=== PATIENT | male | born 1965 | race Caucasian/White ===

== ENCOUNTER → 2018-07-31 10:08 | Outpatient (CLI) | payer OTHER, SELFPAY ==
[2018-07-31 10:58] LABS: Cholesterol 284 mg/dL (140-199); HDL Cholesterol 48 mg/dL (40-60); LDL Cholesterol Calculated 189 mg/dL (<100); Triglycerides 237 mg/dL (35-150)
[2018-07-31 11:14] LABS: Vitamin D 25 Hydroxy (D3) 33.6 ng/mL (30.0-100.0)
== END ==
PROVIDERS: PCP Student in an Organized Health Care Education/Training Program; Visit Provider Student in an Organized Health Care Education/Training Program
DX: Z12.5 Encounter for screening for malignant neoplasm of prostate (principal); Z13.220 Encounter for screening for lipoid disorders; Z82.49 Family history of ischemic heart disease and other diseases of the circulatory system; E55.9 Vitamin D deficiency, unspecified
CPT/HCPCS: 36415; 80061; 82306; G0103

== ENCOUNTER → 2018-10-28 08:27 | Outpatient (CLI) | payer OTHER, SELFPAY ==
[2018-10-28 10:31] LABS: Alanine Aminotransferase 121 IU/L (21-72); Albumin 4.4 g/dL (3.5-5.0); Albumin Globulin Ratio 1.6 (1.0-2.8); Alkaline Phosphatase 90 U/L (38-126); Aspartate Aminotransferase 72 IU/L (17-59); Bilirubin Unconjugated 0.8 mg/dL (0.0-1.1); Cholesterol 167 mg/dL (140-199); Globulin 2.8 g/dL (1.7-4.1); HDL Cholesterol 50 mg/dL (40-60); HEMOLYSIS < 15 (0-50); LDL Cholesterol Calculated 93 mg/dL (<100); Total Protein 7.2 g/dL (6.3-8.2); Triglycerides 118 mg/dL (35-150)
== END ==
PROVIDERS: PCP Student in an Organized Health Care Education/Training Program; Visit Provider Student in an Organized Health Care Education/Training Program
DX: E78.2 Mixed hyperlipidemia (principal); Z79.899 Other long term (current) drug therapy
CPT/HCPCS: 36415; 80061; 80076

== ENCOUNTER → 2019-11-18 09:50 | Outpatient (CLI) | payer OTHER, SELFPAY ==
[2019-11-18 10:40] LABS: Alanine Aminotransferase 63 IU/L (<50); Albumin 4.5 g/dL (3.5-5.0); Albumin Globulin Ratio 1.7 (1.0-2.8); Alkaline Phosphatase 73 U/L (38-126); Aspartate Aminotransferase 59 IU/L (17-59); Bilirubin Total 1.1 mg/dL (0.2-1.3); Bilirubin Unconjugated 0.8 mg/dL (0.0-1.1); Cholesterol 177 mg/dL (140-199); Globulin 2.7 g/dL (1.7-4.1); HDL Cholesterol 57 mg/dL (40-60); HEMOLYSIS < 15 (0-50); LDL Cholesterol Calculated 97 mg/dL (<100); Total Protein 7.2 g/dL (6.3-8.2); Triglycerides 116 mg/dL (35-150)
[2019-11-18 11:11] LABS: Prostate Specific Antigen Scrn 0.712 ng/mL (0.1-4.0)
== END ==
PROVIDERS: PCP Student in an Organized Health Care Education/Training Program; Referring Provider Student in an Organized Health Care Education/Training Program; Visit Provider Student in an Organized Health Care Education/Training Program
DX: Z12.5 Encounter for screening for malignant neoplasm of prostate (principal); Z79.899 Other long term (current) drug therapy; R74.8 Abnormal levels of other serum enzymes; E78.5 Hyperlipidemia, unspecified
CPT/HCPCS: 36415; 80061; 80076; G0103

== ENCOUNTER → 2021-05-10 09:55 | Outpatient (CLI) | payer OTHER, SELFPAY ==
[2021-05-10 11:24] LABS: Alanine Aminotransferase 36 IU/L (<50); Albumin 4.3 g/dL (3.5-5.0); Albumin Globulin Ratio 1.7 (1.0-2.8); Alkaline Phosphatase 67 U/L (38-126); Aspartate Aminotransferase 31 IU/L (17-59); Bilirubin Total 0.9 mg/dL (0.2-1.3); Bilirubin Unconjugated 0.9 mg/dL (0.0-1.1); Globulin 2.6 g/dL (1.7-4.1); HEMOLYSIS < 15 (0-50); Total Protein 6.9 g/dL (6.3-8.2)
[2021-05-10 11:53] LABS: Prostate Specific Antigen Scrn 0.807 ng/mL (0.1-4.0)
== END ==
PROVIDERS: PCP Student in an Organized Health Care Education/Training Program; Referring Provider Student in an Organized Health Care Education/Training Program; Visit Provider Student in an Organized Health Care Education/Training Program
DX: E78.5 Hyperlipidemia, unspecified (principal); R79.89 Other specified abnormal findings of blood chemistry; Z12.5 Encounter for screening for malignant neoplasm of prostate
CPT/HCPCS: 36415; 80076; G0103

== ENCOUNTER → 2022-09-01 08:39 | Outpatient (CLI) | payer OTHER, SELFPAY ==
[2022-09-01 09:35] LABS: Cholesterol 206 mg/dL (140-199); HDL Cholesterol 60 mg/dL (40-60); LDL Cholesterol Calculated 104 mg/dL (<100); Triglycerides 211 mg/dL (35-150)
[2022-09-01 10:22] LABS: Hep C Virus Ab w/Reflex Quant NEGATIVE s/c (NEGATIVE)
== END ==
PROVIDERS: PCP Student in an Organized Health Care Education/Training Program; Referring Provider Student in an Organized Health Care Education/Training Program; Visit Provider Student in an Organized Health Care Education/Training Program
DX: E78.5 Hyperlipidemia, unspecified (principal); Z11.59 Encounter for screening for other viral diseases
CPT/HCPCS: 36415; 80061; 86803

== ENCOUNTER → 2024-07-25 07:57 | Outpatient (CLI) | payer OTHER, SELFPAY ==
[2024-07-25 09:03] LABS: Alanine Aminotransferase 70 IU/L (<50); Albumin 4.6 g/dL (3.5-5.0); Albumin Globulin Ratio 1.9 (1.0-2.8); Alkaline Phosphatase 69 U/L (38-126); Aspartate Aminotransferase 50 IU/L (17-59); BUN Creatinine Ratio 20.2 (6-22); Bilirubin Total 1.3 mg/dL (0.2-1.3); Blood Urea Nitrogen 19 mg/dL (9-20); Calcium 9.5 mg/dL (8.4-10.2); Carbon Dioxide 22 mmol/L (22-32); Chloride 108 mmol/L (98-107); Cholesterol 214 mg/dL (140-199); Estimated Glomerular Filt Rate > 60 mL/min (>60); Globulin 2.4 g/dL (1.7-4.1); Glucose 109 mg/dL (80-110); HDL Cholesterol 54 mg/dL (40-60); HEMOLYSIS < 15 (0-50); LDL Cholesterol Calculated 139 mg/dL (<100); Potassium 4.4 mmol/L (3.4-5.1); Sodium 140 mmol/L (137-145); Triglycerides 106 mg/dL (35-150)
[2024-07-25 09:33] LABS: Prostate Specific Antigen Scrn 1.05 ng/mL (0.1-4.0)
== END ==
PROVIDERS: PCP Family Medicine; Referring Provider Family Medicine; Visit Provider Family Medicine
DX: E78.5 Hyperlipidemia, unspecified (principal); Z12.5 Encounter for screening for malignant neoplasm of prostate
CPT/HCPCS: 36415; 80053; 80061; G0103

== ENCOUNTER 2025-02-11 12:11 | Emergency (ER) | payer OTHER, SELFPAY ==
[2025-02-11] VITALS (9 sets, daily range): BP systolic 118–149; BP diastolic 74–82; PULSE 82–96; RESP 13–24; TEMP 36.8; O2SAT 96–100; BMI 25.6
--- NOTE | 2025-02-11 12:23 | EKG_ITS ---
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
--- NOTE | 2025-02-11 12:23 | DI.RAD.S_ITS ---
PROCEDURE: XR CHEST 1V INDICATIONS: tachy/low O2 w/ exertion, calf pain, sob TECHNIQUE: One view of the chest was acquired. COMPARISON: None. FINDINGS: Surgical changes and devices: None. Lungs and pleura: Lungs are clear. No pleural effusions or pneumothorax. Mediastinum: Mediastinal contours appear normal. Heart size is normal. Bones and chest wall: No suspicious bony lesions. Overlying soft tissues appear unremarkable. IMPRESSION: No acute cardiopulmonary pathology. Dictated by: Stevie Dahl M.D. on 02/11/2025 at 13:38 Approved by: Stevie Dahl M.D. on 02/11/2025 at 13:56
--- NOTE | 2025-02-11 12:23 | DI.CT.S_ITS ---
PROCEDURE: CT ANGIO CHEST PE PROTOCOL INDICATIONS: tachy/low O2 w/ exertion, calf pain, short of breath TECHNIQUE: After the administration of intravenous contrast, 2 mm thick sections acquired from the pulmonary apices to the posterior costophrenic angles. 3-dimensional maximum intensity projection (MIP) coronal and sagittal reformats were then acquired through the thorax. For radiation dose reduction, the following was used: automated exposure control, adjustment of mA and/or kV according to patient size. COMPARISON: [facility], CR, XR CHEST 1V, 02/11/2025, 12:25. [facility], US, US PERIPH VENOUS LOW EXTREM BI, 02/11/2025, 12:45. FINDINGS: Image quality: Diagnostic. Pulmonary arteries: Pulmonary arteries are normal in size, and demonstrate no intraluminal filling defects to suggest central pulmonary embolism. Lower Neck: No enlarged lymph nodes. Thyroid: No thyroid nodules which require sonographic follow up, per consensus guidelines. Axillae: No enlarged lymph nodes. Chest Wall: Unremarkable. Bones: Accentuated thoracic kyphosis is seen. Age-appropriate bony degenerative changes are seen. Lungs and Pleura: No pneumothorax or pleural effusions. No consolidation or suspicious nodules. Heart: Heart size is normal. No pericardial effusion. Thoracic Vessels: No aortic aneurysm. Mediastinum and [place]: No enlarged lymph nodes. Esophagus: No wall thickening. No hiatal hernia. Upper Abdomen: Metallic foci can be seen along the anterior aspect of the left kidney. Nonobstructing left-sided kidney stones are seen, measuring 3 mm. The visualized portions of the upper abdominal structures are otherwise unremarkable for imaging technique. IMPRESSION: No pulmonary embolus. No acute cardiopulmonary process. Dictated by: Amaury Eisenberg M.D. on 02/11/2025 at 13:13 Approved by: Amaury Eisenberg M.D. on 02/11/2025 at 13:15
--- NOTE | 2025-02-11 12:23 | DI.US.S_ITS ---
PROCEDURE: US PERIPH VENOUS LOW EXTREM BI INDICATIONS: calf pain, swelling, redness TECHNIQUE: Real-time imaging, as well as color and pulse Doppler interrogation, were performed of the deep veins of both legs from the inguinal ligament to the popliteal fossa, with documentation of the visualized calf veins. COMPARISON: None. FINDINGS: Right: The common femoral, femoral, popliteal, and the visualized calf veins are normally compressible, and free of intraluminal thrombus. Color and pulse Doppler demonstrate normal phasic intravascular flow. There is normal augmentation response to distal compression maneuver. Left: The common femoral, femoral, popliteal, and the visualized calf veins are normally compressible, and free of intraluminal thrombus. Color and pulse Doppler demonstrate normal phasic intravascular flow. There is normal augmentation response to distal compression maneuver. IMPRESSION: No findings of deep venous thrombosis in either lower extremity. Dictated by: Stevie Dahl M.D. on 02/11/2025 at 13:56 Approved by: Stevie Dahl M.D. on 02/11/2025 at 13:56
--- NOTE | 2025-02-11 12:25 | ED.SOB ---
HPI - SOB/Dyspnea General Chief Complaint: Shortness of Breath/Dyspnea Stated Complaint: Rule out P E in lung Time Seen by Provider: 02/11/25 12:23 Source: patient, RN notes reviewed and old records reviewed Mode of arrival: Ambulatory Limitations: no limitations History of Present Illness HPI Narrative: 59-year-old male history of dyslipidemia presents with complaint of recent pneumonia was treated for clinical pneumonia with initially Augmentin and then followed by azithromycin symptoms seemed to improve cough seemed to resolve but patient has had persistent fatigue particularly with exertion they have not noticed being short of breath but family has noticed there little tachypneic when they walk. They have noticed there heart rate gets above 100 in the O2 sat we will sometimes dip to 89% with the exertion. They do not have any known lung disease. Patient also notes he has had calf pain for several days to a week in the right calf he has noticed a little bit of swelling and warmth. Patient states statin is his only daily medication. He has not had any fevers cough has resolved no hemoptysis reported. No chest pain, no shortness of breath at they appreciate no nausea or vomiting no other GI or urinary symptoms. Patient has not had any prior surgeries no anticoagulants, allergy to Demerol, no tobacco 2 or 3 alcoholic drinks daily no recreational drugs. Dr. Woods is there primary care physician. 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 Related Data Previous Rx's ?Medication ?Instructions ?Recorded rosuvastatin 20 mg tablet (Crestor) 20 mg PO DAILY cholesterol #100 09/17/24 tabs Allergies Allergy/AdvReac Type Severity Reaction Status Date / Time meperidine (From Demerol) Allergy Intermediate VOMITING Verified 02/10/25 15:02 Review of Systems Review of Systems ROS Unobtainable: All systems reviewed & are unremarkable except as noted in HPI and below Patient History Medical History Foot pain (~2018) Squamous cell carcinoma in situ Vision disorder Plantar warts (~1989) Hay fever (~1987) Chicken pox (~1967) Hearing loss History of genitourinary disorders unknown (~1976) Kidney stones (~1976) defect (~1976) Surgical History History of Mohs surgery for squamous cell carcinoma of skin History of appendectomy Anesthesia History of shoulder surgery (~2010) History of knee surgery History of kidney surgery (~1978) Family History Father Skin cancer Sarcoidosis Cancer Hypertension Hyperlipidemia Mother Family history of thyroid problem Brother Skin cancer Grandfather No problems noted. Grandmother No problems noted. Grandfather Cancer Grandmother Family history of thyroid problem Social History Smoking Status: Never smoker Smoking Status: Never smoker Exam Narrative Exam Narrative: GENERAL: Alert and oriented x three, well-appearing male in mild distress HEENT: Head normocephalic, atraumatic, EOMI, pupils reactive, face symmetric, moist mucous membranes NECK: Supple, full range of motion CARDIOVASCULAR: Regular rate and rhythm without murmurs, rubs or gallops. No JVD. RESPIRATORY: Breath sounds equal bilaterally, no wheezes rales or rhonchi. No tachypnea, no accessory muscle use patient is speaks in full sentences. ABDOMEN: Soft, nontender. Normoactive bowel sounds all 4 quadrants. No guarding or rebound, rigidity, no mass : No CVA tenderness EXTREMITIES: Normal range of motion, patient does have some swelling and warmth at the posterior right calf and into the popliteal region, areas slightly tender to touch, there is a healed scar but no other lacerations cuts or changes. Neurovascularly intact, cap refill less than 2 seconds bilateral lower extremities. NEUROLOGICAL: Cranial nerves II through XII grossly intact. Moving all extremities SKIN: Warm, dry, no petechiae, no rashes or lesions. Initial Vital Signs Initial Vital Signs: Vital Signs Temperature 98.3 F 02/11/25 12:16 Pulse Rate 96 H 02/11/25 12:16 Respiratory Rate 20 02/11/25 12:16 Blood Pressure 127/78 02/11/25 12:16 Pulse Oximetry 100 02/11/25 12:16 Oxygen Delivery Method Room Air 02/11/25 12:16 Course Orders Ordered: Discontinued Medications Allopurinol (Allopurinol 100 Mg Tablet) 600 mg PO NOW ONE Stop: 02/11/25 15:21 Last Admin: 02/11/25 15:46 Dose: 600 mg Documented By: SBF Hydroxyurea (Hydroxyurea 500 Mg Capsule) 2,000 mg PO Q8H PHI Last Admin: 02/11/25 15:46 Dose: 2,000 mg Documented By: SAMUEL Sodium Chloride (Normal Saline 0.9%) 1,000 mls @ 1,000 mls/hr IV BOLUS ONE Stop: 02/11/25 15:25 Last Admin: 02/11/25 15:00 Dose: 1,000 mls/hr Documented By: SAMUEL Vital Signs Vital signs: Vital Signs - 8 hr 02/11/25 12:16 02/11/25 13:35 02/11/25 14:00 Temperature 98.3 F Pulse Rate 96 H 82 84 Respiratory Rate 20 18 Blood Pressure 127/78 Pulse Oximetry 100 98 96 Oxygen Delivery Method Room Air 02/11/25 14:24 02/11/25 14:24 02/11/25 14:30 Temperature Pulse Rate 85 84 Respiratory Rate 17 13 Blood Pressure 134/82 Pulse Oximetry 97 96 Oxygen Delivery Method 02/11/25 14:30 02/11/25 15:00 02/11/25 15:00 Temperature Pulse Rate 87 Respiratory Rate 14 Blood Pressure 118/74 141/81 H Pulse Oximetry 97 Oxygen Delivery Method 02/11/25 15:30 02/11/25 15:30 02/11/25 16:00 Temperature Pulse Rate 89 Respiratory Rate 17 Blood Pressure 149/80 H 129/75 Pulse Oximetry 97 Oxygen Delivery Method 02/11/25 16:00 02/11/25 16:30 02/11/25 16:30 Temperature Pulse Rate 86 87 Respiratory Rate 24 18 Blood Pressure 141/81 H Pulse Oximetry 96 Oxygen Delivery Method MDM - SOB/Dyspnea Lab Data 02/11/25 12:30 02/11/25 12:30 Labs: Lab Results 02/11/25 Range/Units 12:30 WBC 237.0 H* (4.5-11.0) X10^3/uL RBC 2.77 L (4.5-5.9) X10^6/uL Hgb 9.2 L (13.5-17.5) g/dL Hct 27.2 L (41-53) % MCV 98.4 (80-100) fL MCH 33.4 (26-34) PG MCHC 34.0 (30-36) % RDW 17.2 H (11.6-14.8) % Plt Count 42 L (150-400) X10^3/uL Neut % (Auto) Not Reportable Lymph % (Auto) Not Reportable Hardy % (Auto) Not Reportable Eos % (Auto) Not Reportable Baso % (Auto) Not Reportable Lymph # (Auto) Not Reportable Hardy # (Auto) Not Reportable Baso # (Auto) Not Reportable Total Counted 100 Lymphocytes % (Manual) 2.0 L (25-45) % Myelocytes % 1.0 H (-0) % Blast Cells % 97.0 H (-0) % Neutrophils # (Manual) 0 L (6865-9183) /uL RBC Morphology See below Anisocytosis 2+ H Smear Path Review Sodium 138 (137-145) mmol/L Potassium 3.8 (3.4-5.1) mmol/L Chloride 104 (98-107) mmol/L Carbon Dioxide 27 (22-32) mmol/L BUN 24 H (9-20) mg/dL Creatinine 1.05 (0.66-1.25) mg/dL Estimated GFR > 60 (>60) mL/min BUN/Creatinine Ratio 22.9 H (6-22) Glucose 103 H (70-99) mg/dL Uric Acid 8.3 (3.5-8.5) mg/dL Calcium 9.8 (8.4-10.2) mg/dL Magnesium 2.4 H (1.6-2.3) mg/dL Total Bilirubin 0.7 (0.2-1.3) mg/dL AST 67 H (17-59) IU/L ALT 72 H (<50) IU/L Alkaline Phosphatase 131 H (38-126) U/L Lactate Dehydrogenase 928 H (120-246) U/L CK-MB (CK-2) 1.3 (0.0-10.4) ng/mL Troponin I 0.018 (0.01-0.034) ng/mL NT-Pro-B Natriuret Pep 89 (<125) pg/mL Total Protein 7.7 (6.3-8.2) g/dL Albumin 4.6 (3.5-5.0) g/dL Globulin 3.1 (1.7-4.1) g/dL Albumin/Globulin Ratio 1.5 (1.0-2.8) Lipase 71 (23-300) U/L Procalcitonin 0.223 (<0.5) ng/mL MDM Narrative Medical decision making narrative: 59-year-old male with a complaint of right calf pain warmth and erythema that has been persistent some fatigue shortness of breath slight tachycardia and occasionally yellow O2 sats reported at home. Patient did not note that they had a recent pneumonia has a negative chest x-ray but were treated clinically with oral antibiotic then followed with the azithromycin they state they are cough and pneumonia symptoms did seem to improve. Labs, patient's white count is 237, peripheral smear is pending. hemoglobin is 9 platelets are 42, patient has predominance a blast cells. Electrolytes are appropriate BUN is 24 creatinine is 1.05 glucose is 103 Mag is 2.4 AST ALT are 6772 with a alk-phos of 131, troponin 0.018 with a BNP 89, procalcitonin is 0.223 EKG, sinus rhythm rate 81 MA 148 QRS 86 QTC of [address]-elevation depression CT angio PE protocol, no pulmonary embolism no cardiopulmonary process. Bilateral lower extremity ultrasound negative for DVT CXR, no acute cardiopulmonary pathology Patient received fluids, allopurinol and hydroxyurea Consult to /[facility] for 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 Spoke with the coordinator at 2:49 p.m. Spoke with Oncology, Dr. Sapphire Marvin/[facility] they accept for transfer concern for potential leukemia/blast crisis although not confirmed at this time. They asked that we give allopurinol 600 mg for loading dose x1 followed by hydroxyurea 2 grams Q 8 hours if patient is a prolonged stay here. Plan for transfer to [facility]. Call back bed is available. Transport being arranged. Spoke with the patient they are agreeable for transfer. Discharge Plan Departure [facility]position: [facility] Clinical Impression: Suspected leukemia Prescriptions: No Action rosuvastatin [Crestor] 20 mg tablet 20 mg PO DAILY Qty: 100 3RF Referrals: Fern Woods DO [Primary Care Provider, [facility]]
[2025-02-11 12:52] LABS: Alanine Aminotransferase 72 IU/L (<50); Albumin 4.6 g/dL (3.5-5.0); Albumin Globulin Ratio 1.5 (1.0-2.8); Alkaline Phosphatase 131 U/L (38-126); Blood Urea Nitrogen 24 mg/dL (9-20); Calcium 9.8 mg/dL (8.4-10.2); Carbon Dioxide 27 mmol/L (22-32); Chloride 104 mmol/L (98-107); Estimated Glomerular Filt Rate > 60 mL/min (>60); Globulin 3.1 g/dL (1.7-4.1); Glucose 103 mg/dL (70-99); HEMOLYSIS < 15 (0-50); Lipase 71 U/L (23-300); Magnesium 2.4 mg/dL (1.6-2.3); Potassium 3.8 mmol/L (3.4-5.1); Sodium 138 mmol/L (137-145); Total Protein 7.7 g/dL (6.3-8.2)
[2025-02-11 12:58] LABS: Hematocrit 27.2 % (41-53); Hemoglobin 9.2 g/dL (13.5-17.5); Mean Corpuscular HGB Conc 34.0 % (30-36); Mean Corpuscular Hemoglobin 33.4 PG (26-34); Mean Corpuscular Volume 98.4 fL (80-100); Platelet Count 42 X10^3/uL (150-400)
[2025-02-11 13:00] LABS: Add Manual Diff / Slide Review YES
[2025-02-11 13:04] LABS: NT-proBNP (BNP-Adult 18+) 89 pg/mL (<125); Troponin I 0.018 ng/mL (0.01-0.034)
--- NOTE | 2025-02-11 13:14 | PC.NURSE ---
WBC REPORTED TO PROVIDER
[2025-02-11 13:23] LABS: Anisocytosis 2+; Blastocytes Percent 97.0 % (-0); Lymphocytes Percent Manual 2.0 % (25-45); Myelocytes Percent 1.0 % (-0); Neutrophils Absolute Manual 0 /uL (3000-5900); Total Cells Counted 100
[2025-02-11 13:36] LABS: Procalcitonin 0.223 ng/mL (<0.5)
[2025-02-11] MEDS: SODIUM CHLORIDE 0.9% 1,000 ML 1000 ML IV (15:00)
[2025-02-11 15:01] LABS: Uric Acid 8.3 mg/dL (3.5-8.5)
[2025-02-11] MEDS: HYDROXYUREA 500 MG CAPSULE 2000 MG PO (15:46)
[2025-02-13 07:09] LABS: Labcorp Creatine Kinase MB 1.3 ng/mL (0.0-10.4)
== END 2025-02-11 17:00 | disposition short-term general hospital (02) ==
PROVIDERS: Emergency Provider Emergency Medicine; PCP Family Medicine
DX: M79.604 Pain in right leg (principal); R06.02 Shortness of breath; R00.0 Tachycardia, unspecified; C95.90 Leukemia, unspecified not having achieved remission
CPT/HCPCS: 71045; 71275; 80053; 82553; 83615; 83690; 83735; 83880; 84145; 84484; 84550; 85007; 85025; 93005; 93010; 93970; 99284; J7030; Q9967